=== PATIENT | male | born 1965 | race Caucasian/White ===

== ENCOUNTER 2022-05-22 21:16 | Emergency (ER) | payer OTHER ==
[~2022-05-22] VITALS: Ht 185.4 cm; Wt 75.0 kg
[2022-05-22] MEDS ORDERED: IBUPROFEN 600MG TABLET PO ONE (22:30)
[2022-05-22 23:20] VITALS: BP 140/80
[2022-05-23] MEDS ORDERED: IBUP-2029 MT (00:01)
== END 2022-05-23 01:03 | disposition home or self-care (01) ==
LOC: ER 21:16
DX: S06.0X0A Concussion without loss of consciousness, initial encounter (principal); W18.39XA Other fall on same level, initial encounter; Y93.89 Activity, other specified; Y92.89 Other specified places as the place of occurrence of the external cause; Y99.8 Other external cause status; M54.2 Cervicalgia; F10.10 Alcohol abuse, uncomplicated
CPT/HCPCS: 99284